=== PATIENT | male | born 1975 | race Two or more races ===

== ENCOUNTER 2019-06-01 18:45 | Emergency (ER) | payer OTHER ==
[2019-06-01 18:51] VITALS: BMI 22.1
--- NOTE | 2019-06-01 18:54 | PDOC ---
Rapid Medical Evaluation Chief Complaint: Suicidal Time Seen by Provider: 06/01/19 18:47 Medical Evaluation: 06/01/19 18:48 Pt presents for evaluation of suicidal ideation. He states that he plans to kill himself by taking his car and crashing. He states he has a lot of financial problems. Tried to kill himself one year ago as well; he had a plan to jump in front of a train then. Exam: Tearful (+) suicidal ideation Orders: labs, utox Pt to proceed to the ER for further evaluation [phone] Daina Clyde () Discharge Disposition - Diagnosis Suicidal ideation - Referrals - Patient Instructions
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
[2019-06-01 20:45] LABS: URINE APPEARANCE CLEAR; URINE BILIRUBIN NEGATIVE (NEGATIVE); URINE COLOR YELLOW; URINE GLUCOSE (UA) NEGATIVE (NEGATIVE); URINE KETONE TRACE (NEGATIVE); URINE LEUK ESTERASE NEGATIVE (NEGATIVE); URINE NITRITE NEGATIVE (NEGATIVE); URINE PROTEIN NEGATIVE (NEGATIVE); URINE UROBILINOGEN 0.2 mg/dL (0.2-1.0)
[2019-06-01 20:55] LABS: COCAINE, UR NEGATIVE ng/ml (CUTOFF=300); OPIATES, URI NEGATIVE ng/ml (CUTOFF=300); PHENCYCLIDINE,URINE NEGATIVE ng/ml (CUTOFF=25); URINE AMPHETAMINES NEGATIVE ng/ml (CUTOFF=500); URINE BARBITURATES NEGATIVE ng/ml (CUTOFF=200); URINE BENZODIAZEPINES NEGATIVE ng/ml (CUTOFF=200)
[2019-06-01 20:58] LABS: BASO % 0.7 % (0-2.0); EOS % 0.8 % (0-4.5); HEMATOCRIT 46.2 % (35.4-49); HEMOGLOBIN 14.7 GM/dL (11.7-16.9); LYMPH % 25.8 % (8-40); MCH 27.3 pg (25.7-33.7); MCHC 31.8 g/dl (32.0-35.9); MEAN CELL VOLUME 85.6 fl (80-96); MEAN PLT VOLUME 10.3 fl (7.5-11.1); MONO % 6.4 % (3.8-10.2); NEUT % 66.3 % (42.8-82.8); PLATELET COUNT 233 K/MM3 (134-434); RDW 13.3 % (11.9-15.9); WHITE BLOOD COUNT 14.2 K/mm3 (4.0-10.0)
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
[2019-06-01 21:23] LABS: ALBUMIN 4.3 g/dl (3.4-5.0); BILIRUBIN,TOTAL 0.4 mg/dL (0.2-1); POTASSIUM 3.7 mmol/L (3.5-5.1)
--- NOTE | 2019-06-02 00:48 | PDOC ---
*Physical Exam - Vital Signs Last Vital Signs Temp Pulse Resp BP Pulse Ox 98.3 F 78 20 125/83 95 06/01/19 18:48 06/01/19 23:55 06/01/19 18:48 06/01/19 23:55 06/01/19 23:55 ED Treatment Course - LABORATORY CBC & Chemistry Diagram: 06/01/19 20:24 06/01/19 20:19 - ADDITIONAL ORDERS Additional order review: Laboratory Results 06/01/19 06/01/19 06/01/19 20:24 20:24 20:19 Sodium 139 Potassium 3.7 Chloride 105 Carbon Dioxide 24 Anion Gap 10 BUN 15.0 Creatinine 1.0 Est GFR (CKD-EPI)AfAm 107.12 Est GFR (CKD-EPI)NonAf 92.42 Random Glucose 91 Calcium 9.0 Total Bilirubin 0.4 AST 20 ALT 26 Alkaline Phosphatase 94 Total Protein 8.0 Albumin 4.3 Urine Color Yellow Urine Appearance Clear Urine pH 6.0 Ur Specific [place] 1.028 Urine Protein Negative Urine Glucose (UA) Negative Urine Ketones Trace H Urine Blood Negative Urine Nitrite Negative Urine Bilirubin Negative Urine Urobilinogen 0.2 Ur Leukocyte Esterase Negative Opiates Screen Negative Barbiturate Screen Negative Phencyclidine Screen Negative Ur Amphetamines Screen Negative MDMA (Ecstasy) Screen Negative Benzodiazepines Screen Negative Cocaine Screen Negative U Marijuana (THC) Screen Negative 06/01/19 20:24 RBC 5.40 MCV 85.6 MCHC 31.8 L RDW 13.3 MPV 10.3 Neutrophils % 66.3 Lymphocytes % 25.8 Monocytes % 6.4 Eosinophils % 0.8 Basophils % 0.7 Medical Decision Making - Medical Decision Making 06/02/19 00:[address] Melita Cornell is a 44M with no other past medical history presenting with suicidal ideation with plan. Pt calm on re-eval, medically cleared, consulted Dr Johnson, plan to be seen by psych in AM. Discharge - Discharge Information Problems reviewed: Yes Clinical Impression/Diagnosis: Suicidal ideation Condition: Stable - Follow up/Referral - Patient Discharge Instructions - Post Discharge Activity Work/Back to School Note: My Personal Safety Plan
[2019-06-02 00:57] LABS: METHADONE, UR NEGATIVE ng/ml (CUTOFF=300)
--- NOTE | 2019-06-02 07:14 | PDOC ---
*Physical Exam - Vital Signs Last Vital Signs Temp Pulse Resp BP Pulse Ox 97.3 F L 58 L 18 112/74 100 06/02/19 03:20 06/02/19 06:22 06/02/19 06:22 06/02/19 06:22 06/02/19 06:22 ED Treatment Course - LABORATORY CBC & Chemistry Diagram: 06/01/19 20:24 06/01/19 20:19 - ADDITIONAL ORDERS Additional order review: Laboratory Results 06/01/19 06/01/19 06/01/19 20:24 20:24 20:19 Sodium 139 Potassium 3.7 Chloride 105 Carbon Dioxide 24 Anion Gap 10 BUN 15.0 Creatinine 1.0 Est GFR (CKD-EPI)AfAm 107.12 Est GFR (CKD-EPI)NonAf 92.42 Random Glucose 91 Calcium 9.0 Total Bilirubin 0.4 AST 20 ALT 26 Alkaline Phosphatase 94 Total Protein 8.0 Albumin 4.3 Urine Color Yellow Urine Appearance Clear Urine pH 6.0 Ur Specific [place] 1.028 Urine Protein Negative Urine Glucose (UA) Negative Urine Ketones Trace H Urine Blood Negative Urine Nitrite Negative Urine Bilirubin Negative Urine Urobilinogen 0.2 Ur Leukocyte Esterase Negative Opiates Screen Negative Methadone Screen Negative Barbiturate Screen Negative Phencyclidine Screen Negative Ur Amphetamines Screen Negative MDMA (Ecstasy) Screen Negative Benzodiazepines Screen Negative Cocaine Screen Negative U Marijuana (THC) Screen Negative 06/01/19 20:24 RBC 5.40 MCV 85.6 MCHC 31.8 L RDW 13.3 MPV 10.3 Neutrophils % 66.3 Lymphocytes % 25.8 Monocytes % 6.4 Eosinophils % 0.8 Basophils % 0.7 Medical Decision Making - Medical Decision Making 06/02/19 07:[address] Tierney 44 y.o M no significant pmhx presenting with suicidal ideation and plan. medically cleared Dr. Robles contacted and aware expected to see patient this A.M 06/02/19 07:19 Pt reassessed currently on 1:1 monitoring. no acute distress (medically) at this time. 06/02/19 08:42 Dr. Robles gives his ETA as around 10 a.m 06/02/19 11:00 Dr Robles has seen and evaluated patien at bedside and has determined that patient is not a threat to himself or others at this time and can be discharged home in the care of his family. 06/02/19 11:31 Discharge - Discharge Information Problems reviewed: Yes Clinical Impression/Diagnosis: Suicidal ideation Condition: Stable Disposition: HOME - Admission No - Follow up/Referral Referrals: Carlton Mills NP [Nurse Practitioner] - - Patient Discharge Instructions Patient Printed Discharge Instructions: DI for Suicidal Ideation-Adult Additional Instructions: You were seen in the ER because you were having suicidal thoughts. You were evaluated by a psychiatrist If you continue to have these thoughts or begin to think of harming others come back to the ER we have given you the contact information for a behavioral health professional to continue your care your care is not complete until you do so. - Post Discharge Activity Work/Back to School Note: My Personal Safety Plan
--- NOTE | 2019-06-02 09:05 | EKG ---
Test Reason : Blood Pressure : / mmHG Vent. Rate : 063 BPM Atrial Rate : 063 BPM P-R Int : 176 ms QRS Dur : 084 ms QT Int : 412 ms P-R-T Axes : 067 042 037 degrees QTc Int : 421 ms SINUS RHYTHM WITH MARKED SINUS ARRHYTHMIA NONSPECIFIC T WAVE ABNORMALITY ABNORMAL ECG NO PREVIOUS ECGS AVAILABLE Confirmed by Sim Paige MD ([id number]) on 06/02/2019 9:05:34 AM Referred By: Confirmed By:Sim Paige MD
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
[2019-06-02 12:13] VITALS: BP 127/83; PULSE 63; TEMP 97.9
== END 2019-06-02 12:14 | disposition home or self-care (01) ==
LOC: JER 18:45
DX: R45.851 Suicidal ideations (principal); Z88.0 Allergy status to penicillin; Z88.8 Allergy status to other drugs, medicaments and biological substances
CPT/HCPCS: 36415; 80053; 80307; 81003; 85025; 93005; 93010; 99285-25